=== PATIENT | male | born 1960 | race African-American/Black ===

== ENCOUNTER 2021-10-12 16:10 | Emergency (ER) | payer BC ==
[~2021-10-12] VITALS: Ht 198.1 cm; Wt 124.7 kg
[~2021-10-12 16:10] MED LIST: ASPI81TA31 PO; LISI2.5T90 PO
[2021-10-12] MEDS ORDERED: OLME40TA12 PO (16:37)
[2021-10-12] MEDS ORDERED: ASPI81TA31 PO (16:37)
[2021-10-12] MEDS ORDERED: LIDOCAINE VISCUS 2% 15 ML UDC MM ONE (16:45)
[2021-10-12] MEDS ORDERED: MAG HYDROX/AL HYDROX/SIMETH 30 ML LIQUID UDC PO ONE (16:45)
[2021-10-12] MEDS ORDERED: CLONIDINE HCL 0.1 MG TABLET PO ONE (16:45)
[2021-10-12] MEDS ORDERED: PANTOPRAZOLE SODIUM 40 MG TABLET.DR PO ONE ×2 (16:45→17:00)
--- NOTE | 2021-10-12 16:46 | NUR ---
Bilateral BP check done per provider order. VS documented accordingly and provider notified.
[2021-10-12] MEDS ORDERED: CLONIDINE HCL 0.1 MG TABLET ONE (16:59)
[2021-10-12] MEDS ORDERED: LIDOCAINE VISCUS 2% 15 ML UDC ONE (16:59)
[2021-10-12] MEDS ORDERED: MAG HYDROX/AL HYDROX/SIMETH 30 ML LIQUID UDC ONE (16:59)
[2021-10-12 17:16] LABS: MEAN CORPUSCULAR HEMOGLOBIN 28.6 uug (23.8-33.4); MEAN CORPUSCULAR VOLUME 85.9 fL (73.0-96.2); PLATELET COUNT (AUTO) 182 K/uL (152-348)
[2021-10-12 17:27] LABS: CARBON DIOXIDE 30 mmol/L (21-32); CHLORIDE 103 mmol/L (98-107); CREATININE 0.7 mg/dL (0.6-1.3); GLUCOSE 93 mg/dL (74-106); POTASSIUM 3.7 mmol/L (3.5-5.1); UREA NITROGEN, BLOOD 11 mg/dL (7-18)
[2021-10-12 17:33] LABS: ALANINE AMINOTRANSFERASE 33 U/L (16-63); ALKALINE PHOSPHATASE 63 U/L (50-136); ASPARTATE AMINOTRANSFERASE 24 U/L (15-37); BILIRUBIN,DIRECT 0.1 mg/dL (0.0-0.2); BILIRUBIN,TOTAL 0.4 mg/dL (0.2-1.0); LIPASE 68 U/L (73-393)
--- NOTE | 2021-10-12 17:45 | NUR ---
Provider spoke with pt. Pt states no longer having pain and improvement in S/S. Pt aware, will repeat studies in 3 hrs. Pt is laying semi-fowlers, stable, in NAD at this time.
--- NOTE | 2021-10-12 21:33 | NUR ---
Patient does not wish to proceed with medical care recommended by Dr. Melton. Patient A/Ox4, and is able to ambulate with steady gait. Patient given information related to possible complications, up to and including , which could occur as a result of leaving the hospital at this time. Patient verbalizes understanding of risks involved due to leaving against medical advice. Patient has signed AMA form.
[2021-10-12 21:34] VITALS: BP 175/111
== END 2021-10-12 21:56 | disposition left against medical advice (07) ==
LOC: ER 16:19
DX: R07.2 Precordial pain (principal); I11.9 Hypertensive heart disease without heart failure; K21.9 Gastro-esophageal reflux disease without esophagitis; Z86.73 Personal history of transient ischemic attack (TIA), and cerebral infarction without residual deficits; Z79.82 Long term (current) use of aspirin
CPT/HCPCS: 36415; 70030-TC; 71045; 83690; 85025; 93005; A4663

== ENCOUNTER 2023-08-04 08:56 | Emergency (ER) | payer BC ==
[~2023-08-04] VITALS: Ht 198.1 cm; Wt 124.7 kg
[~2023-08-04 08:56] MED LIST changes: -LISI2.5T90 PO; +OLME40TA12 PO
[2023-08-04 09:43] LABS: BASOPHILS # (AUTO) 0.1 K/UL (0.0-0.2); EOSINOPHILS # (AUTO) 0.4 K/uL (0.0-0.7); HEMATOCRIT 39.6 % (36.7-47.1); HEMOGLOBIN 13.1 g/dL (12.5-16.3); LYMPHOCYTES # (AUTO) 1.4 K/uL (0.8-4.8); LYMPHOCYTES % (AUTO) 27.5 % (20.5-51.5); MEAN CORPUSCULAR HEMOGLOBIN 28.6 uug (23.8-33.4); MEAN CORPUSCULAR HGB CONC 33 g/dL (32.5-36.3); MEAN CORPUSCULAR VOLUME 86.5 fL (73.0-96.2); MONOCYTES # (AUTO) 0.6 K/uL (0.1-1.30); MONOCYTES % (AUTO) 11.6 % (0.0-11.0); NEUTROPHILS # (AUTO) 2.7 K/uL (1.8-8.9); NEUTROPHILS % (AUTO) 52.9 % (38.5-71.5); PLATELET COUNT (AUTO) 175 K/uL (152-348); RED BLOOD CELL COUNT(AUTO) 4.58 MIL/uL (4.06-5.63); RED CELL DISTRIBUTION WIDTH 14.2 % (12.1-16.2)
[2023-08-04 09:48] LABS: CALCIUM 9.4 mg/dL (8.5-10.1); CARBON DIOXIDE 32 mmol/L (21-32); CHLORIDE 105 mmol/L (98-107); CREATININE 1.1 mg/dL (0.6-1.3); GLUCOSE 119 mg/dL (74-106); POTASSIUM 4.5 mmol/L (3.5-5.1); SODIUM SERUM 140 mmol/L (136-145); UREA NITROGEN, BLOOD 18 mg/dL (7-18)
[2023-08-04 09:57] LABS: ALANINE AMINOTRANSFERASE 27 U/L (16-63); ALBUMIN 3.5 g/dL (3.4-5.0); ALKALINE PHOSPHATASE 55 U/L (50-136); ASPARTATE AMINOTRANSFERASE 23 U/L (15-37); BILIRUBIN,DIRECT 0.1 mg/dL (0.0-0.2); BILIRUBIN,TOTAL 0.3 mg/dL (0.2-1.0); TOTAL PROTEIN, SERUM 6.7 g/dL (6.4-8.2)
[2023-08-04 10:16] LABS: DIFFERENTIAL COMMENT 1
[2023-08-04] MEDS ORDERED: AMLO-555 PO (12:15)
[2023-08-04 12:33] VITALS: BP 160/97; TEMP 98.1; O2SAT 98
== END 2023-08-04 12:56 | disposition home or self-care (01) ==
LOC: ER 09:01
DX: I10 Essential (primary) hypertension (principal); R14.2 Eructation; R07.89 Other chest pain; K21.9 Gastro-esophageal reflux disease without esophagitis; Z86.73 Personal history of transient ischemic attack (TIA), and cerebral infarction without residual deficits; Z79.82 Long term (current) use of aspirin; Z79.899 Other long term (current) drug therapy
CPT/HCPCS: 36415; 71045; 84484; 85025; 93005; A4663

== ENCOUNTER 2025-09-14 23:52 | Emergency (ER) | payer BC ==
[~2025-09-14] VITALS: Ht 198.1 cm; Wt 135.2 kg
[~2025-09-14 23:52] MED LIST changes: +AMLO-555 PO
[2025-09-15] MEDS ORDERED: FURO20TA4 PO (00:40)
[2025-09-15 01:06] LABS: PLATELET COUNT (AUTO) 172 K/uL (152-348); RED BLOOD CELL COUNT(AUTO) 4.92 MIL/uL (4.06-5.63); RED CELL DISTRIBUTION WIDTH 14.1 % (12.1-16.2); WHITE BLOOD COUNT (AUTO) 5.3 K/uL (3.6-10.2)
[2025-09-15 01:11] LABS: CREATININE 0.8 mg/dL (0.6-1.3); SODIUM SERUM 140.0 mmol/L (136-145); UREA NITROGEN, BLOOD 18.0 mg/dL (7-18)
[2025-09-15 01:16] LABS: ASPARTATE AMINOTRANSFERASE 22.0 U/L (15-37); TOTAL PROTEIN, SERUM 7.3 g/dL (6.4-8.2)
[2025-09-15] MEDS ORDERED: CLON0.1T PO (02:15)
[2025-09-15 02:29] VITALS: BP 148/95
[2025-09-15 02:58] VITALS: BP 148/95; O2SAT 100
== END 2025-09-15 03:01 | disposition home or self-care (01) ==
LOC: ER 23:52
DX: R20.2 Paresthesia of skin (principal); I11.9 Hypertensive heart disease without heart failure; G62.9 Polyneuropathy, unspecified; G45.9 Transient cerebral ischemic attack, unspecified; Z79.82 Long term (current) use of aspirin; Z79.899 Other long term (current) drug therapy; Z86.73 Personal history of transient ischemic attack (TIA), and cerebral infarction without residual deficits; Z87.19 Personal history of other diseases of the digestive system; Z88.7 Allergy status to serum and vaccine
CPT/HCPCS: 99285; 96374; 70450; 71045; 80053; 85025; 85610; 36415; 93005; J0360; A4606; A4663